=== PATIENT | male | born 1985 | race Caucasian/White ===

== ENCOUNTER 2018-01-02 00:38 | Emergency (ER) | payer SELFPAY ==
[2018-01-02 00:48] VITALS: RESP 22; TEMP 97.6
[2018-01-02] MEDS ORDERED: KETOROLAC TROMETHAMINE 30 MG/ML SOL IV ONE (00:57)
[2018-01-02] MEDS ORDERED: CYCLOBENZAPRINE 10 MG TAB PO ONE (00:57)
[2018-01-02] MEDS ORDERED: KETOROLAC TROMETHAMINE 30 MG/ML SOL ONE (00:59)
[2018-01-02] MEDS ORDERED: CYCLOBENZAPRINE 10 MG TAB ONE (01:00)
[2018-01-02 02:05] VITALS: BP 157/102; PULSE 94; O2SAT 100
== END 2018-01-02 01:55 | disposition home or self-care (01) | DRG 552 ==
LOC: ED 00:38 → MERGE 00:38 → ED 01:55
DX: M54.9 Dorsalgia, unspecified (principal); M62.830 Muscle spasm of back
CPT/HCPCS: 96374; 99282; 99283; J1885; A9270-GY